=== PATIENT | female | born 1985 | race African-American/Black ===

== ENCOUNTER 2016-06-08 17:58 | Emergency (ER) | payer SELFPAY ==
[~2016-06-08] VITALS: Ht 165.1 cm; Wt 56.4 kg
[~2016-06-08 17:58] MED LIST: DICY20TA10 PO
[2016-06-08 18:13] VITALS: BP 118/81; PULSE 115; RESP 48; O2SAT 100
[2016-06-08] MEDS ORDERED: 0.9% Sodium Chloride 1,000 ML IV ONE (18:37)
[2016-06-08] MEDS ORDERED: HYDROmorphone 0.5 mg/0.5 mL iSecure Syringe IVPUSH PRN (18:40)
[2016-06-08] MEDS ORDERED: Ondansetron 2 mg/mL 2 mL Inj IVPUSH ONE (18:40)
--- NOTE | 2016-06-08 18:41 | ED.REPORT ---
HPI-General Illness Date of Service Jun 08, 2016 ED Provider: Carlitos Amin MD Pt is a 31 y/o female w/ a hx of IBS presenting to the ED c/o vague subjective dehydration. The patient states she has "sickle cell trait" which causes her to be chronically borderline anemic. She reports very vague associated symptoms including CP, SOB, nausea, abdominal pain, generalized weakness, recent weight loss. Pt denies vomiting, dysuria, urinary frequency. She does not a vague flu- like illness which included vomiting that she experienced many weeks ago. She thinks that this is W become dehydrated. Her CLIFF report indicates visits for psychosis and edward. Her history is very tangential and vague. Throughout the course of her emergency department visit she repeatedly changes her reason for coming to the emergency department. Nursing Notes Stated Complaint: DEHYDRATED Chief Complaint: General Complaint Nursing Notes Reviewed: Yes Allergies: Coded Allergies: No Known Allergies (Unverified , 06/08/16) Scheduled PRN Dicyclomine (Dicyclomine) 20 Mg Tablet 20 MG PO QID PRN PRN For GI Cramps General Time Seen by MD: 18:21 Chief Complaint Multip medical complaints Hx Obtained From: Patient Arrived By: Walk-in Sudden in Onset?: No Onset Occurred: 5 - 8 hours ago Symptom Duration: Since onset Location: : Abdomen: Chest Quality: Painful Severity: Current: Mild Severity: Maximum: Mild Recent Healthcare: Previous diagnosis Similar Sx Previous: Yes Past Medical History Past Medical History frequent UTI chronic abdominal pain constipation irregular periods IBS "Has the sickle cell trait" Past Surgical History tubal ligation Smoking History Unknown if Ever Smoker Social History Other Social History: Good social support, Ambulatory Status Independent Review of Systems Full Review of Systems Constitutional: Reports: Recent wt loss, Weakness - generalized, Denies: Chills, Fever Respiratory: Reports: Shortness of breath Cardiovascular: Reports: Chest pain, Denies: Dyspnea on exertion GI: Reports: Abdominal pain, Nausea, Denies: Vomiting Female: Denies: Dysuria, Urinary frequency Complete sys rev & neg: except as marked. Physical Exam Vital Signs Vital Signs Date Time Temp Pulse Resp B/P Pulse Ox O2 Delivery O2 Flow Rate FiO2 06/08/16 22:04 36.7 74 14 128/74 98 Room Air 06/08/16 18:13 37.8 115 48 118/81 100 Room Air Initial VS: Reviewed, Vital signs abnormal Head / Eyes: Atraumatic, Normocephalic, PERRL ENT: Mucous membranes moist, Conjunctiva normal, No scleral icterus Neck: Supple, Full range of motion Respiratory: Breath sounds normal, Clear to auscultation, No respiratory distress Cardiovascular: Regular rate & rhythm, Heart sounds normal, Intact distal pulses Abdomen / GI: Soft, Non-tender, No guarding, No rebound, No distention Extremities: Vascular intact, Neuro intact, No swelling, No tenderness Skin: Warm, Dry, No cyanosis Neurologic: Alert, Oriented, Nonfocal General/Constitutional: Awake, Alert, No acute distress, Well appearing, Well hydrated, Cooperative, Not toxic appearing Psychiatric: Affect NL Abnormal Thinking / Perception: Positive: Flight of ideas, Insight abnormal, Tangential thinking Interpretation & Diagnostics Lab Results Interpretation Result Diagram: 06/08/166 06/08/16 1846 Test 06/08/16 18:46 White Blood Count 10.7th/mm3 (3.8-10.1) Red Blood Count 4.41mil/mm3 (3.90-5.20) Hemoglobin 11.3g/dL (12.0-15.6) Hematocrit 33.1% (35.0-46.0) Mean Corpuscular Volume 75.1fL (81-100) Mean Corpuscular Hemoglobin 25.6pg (27.0-35.0) Mean Corpuscular Hemoglobin Concent 34.1% (32.0-37.0) Red Cell Distribution Width 14.1% (12.3-15.4) Platelet Count 262bil/L (150-400) Neutrophils (%) (Auto) 70.2% (40-74) Lymphocytes (%) (Auto) 20.9% (14-46) Monocytes (%) (Auto) 7.7% (4-12) Eosinophils (%) (Auto) 0.5% (0-5) Basophils (%) (Auto) 0.4% (0-3) Sodium Level 138mEq/L (134-144) Potassium Level 3.4mEq/L (3.5-5.2) Chloride Level 101mEq/L (97-108) Carbon Dioxide Level 22mmol/L (18-29) Blood Urea Nitrogen 7mg/dL (6-20) Creatinine 0.55mg/dL (0.57-1.00) Estimat Glomerular Filtration Rate 165mL/min (>59) Glucose Level 97mg/dL (60-99) Calcium Level 9.1mg/dL (8.5-10.1) Magnesium Level 2.4mg/dL (1.6-2.6) Total Bilirubin 0.5mg/dL (0.0-1.2) Aspartate Amino Transf (AST/SGOT) 15U/L (0-50) Alanine Aminotransferase (ALT/SGPT) 10U/L (0-32) Alkaline Phosphatase 52U/L (25-150) Total Protein 7.5g/dL (6.4-8.4) Albumin 4.7g/dL (3.4-5.0) Lipase 39U/L (13-60) Hold Roth Top Tube Received (Received) Re-Eval/Medical Decision Med Decision/Clinical Course In summary, the patient is a 31-year-old female who reports a history of " sickle cell trait" as well as irritable bowel syndrome. She presents to the emergency department with multiple vague complaints and a story that is quite tangential and difficult to follow. What I can gather she states that she suffered from a flulike illness recently resulting in vomiting and diarrhea and that she now feels dehydrated and that she needs IV fluids. He said she is quite rambling in her history stating that she would like her vitamin D levels checked as well as her iron levels checked. She frequently changes her reason for coming to the emergency department and makes threats to nursing staff that she will "report them for discriminating against her because of her Judaism/ Anabaptism ". 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 Here in the emergency department her examination is unrevealing. She is afebrile with stable vital signs except for one erroneously documented elevated respiratory rate. Laboratory studies are notable for a relatively stable hematocrit of 33.1 and CMP that is unremarkable. He denies any urinary symptoms and declines to provide a urine sample stating that "I cannot be because I had my tubes tied". Throughout the patient's emergency department course she became intermittently agitated, change in her reason for visitation, frequently leaving her room and approaching staff members to inform them as to her knowledge regarding HIPPA rules, appropriate medical documentation and repeatedly asking for additional testing, admission to the hospital and IV vitamins. The patient seemed tangential, disorganized and manic in her behavior. She was seen and evaluated by our delinquency prevention social worker who agreed that the patient seemed manic in her behavior though she refused to be admitted for psychiatric reasons. While she was somewhat disorganized we did not feel that she presented an imminent risk to herself or others. While her thought pattern was quite bizarre and she seemed to demonstrate decisional capacity and her refusal to be admitted for psychiatric reasons. After thorough workup and physical examination I see no evidence of any acutely life-threatening medical process. I see no evidence that she is experiencing a sickle cell crisis, I see no evidence of trauma to her head, meningitis or encephalitis. As her picture fall to clearly demonstrate underlying psychiatric illness she refused to provide urine sample or consent to further testing unless we are willing to administer copious amounts of IV fluids and vitamins. Of note the patient was intermittently pleasant though at other times threatening to report staff members to "ethics committee at attorneys" for her perceived prejudice against her which she stated was "due to her race". Of note she repeatedly changed her stated race from Judaism to Anabaptism to often pulling aside myself and other members to "educate us" on how to be more conscientious and culturally aware. The patient eventually requested to be discharged and her friend came to give her a ride home. I feel that this patient would benefit from psychiatric evaluation and admission though after thoroughly discussing the patient with the Nato Rogers we see no indication that we can hold her against her will. He never expressed any suicidal or homicidal ideation. She was discharged in stable condition. Follow-up and return precautions were provided in detail. Time of Eval: 19:29 Re-Evaluation/Progress Note: Pt rechecked. Informed pt of plan for treatment. Pt understands and agrees with plan for treatment. F/U instructions and RTER warnings given. All questions addressed. Consultation : Consulted With: tail worker Call Returned at: 20:01 Anesthesia Tech: Will see patient, Agrees with eval, Agrees with plan Note: States that records indicate she was detained to [facility] on May 24. Counseled Regarding: Diagnosis, Lab results, Need for follow-up, When/why to return to ED Discharge & Departure Primary Impression: Paranoid behavior Additional Impressions: Agitation Edward Normal exam Disposition: Home Discharge Condition All VS Reviewed: Yes Condition: Stable Patient Instructions: Dehydration (ED) Additional Instructions: Thank you for seeking care at emergency room. Our primary goal today in the ED was to evaluate you for any life-threatening conditions. Your evaluation was reassuring. You should follow-up with your primary doctor in the next week. You should return to the ED immediately if you develop any new/worsening symptoms, fevers, vomiting, cough, shortness of breath, chest pain, lightheadedness, weakness or any other concerning signs or symptoms. Thank you for letting us partake in your care today. Referrals: [facility] Scribe Attestation Portions of this note were transcribed by Manuel Lowe. I, Dr. Amin personally performed the history, physical exam and medical decision-making; I reviewed and confirmed the accuracy of the information in the transcribed note. Signed by Sarah Zamarripa, 06/08/161999 Carlitos Amin MD Jun 08, 2016 18:41 MANUEL LOWE Jun 08, 2016 19:04
[2016-06-08 18:56] LABS: BASOPHILS % (AUTO) 0.4 % (0-3); EOSINOPHILS % (AUTO) 0.5 % (0-5); MONOCYTES % (AUTO) 7.7 % (4-12); Mean Corpuscular Hemoglobin 25.6 pg (27.0-35.0); Mean Corpuscular Volume 75.1 fL (81-100); NEUTROPHILS % (AUTO) 70.2 % (40-74); Platelet Count 262 bil/L (150-400)
[2016-06-08 19:15] LABS: Magnesium 2.4 mg/dL (1.6-2.6)
[2016-06-08 22:04] VITALS: BP 128/74; PULSE 74; RESP 14; O2SAT 98
== END 2016-06-08 21:54 | disposition home or self-care (01) ==
LOC: SED 17:58
DX: F30.2 Manic episode, severe with psychotic symptoms (principal)
CPT/HCPCS: 36415; 80053; 83690; 83735; 85025; 96361; 96374; 96375; 99284; J1170; J2405; J7030